=== PATIENT | female | born 1995 | race Caucasian/White ===

== ENCOUNTER 2016-08-07 12:01 | Inpatient (IN) | payer MEDICAID ==
[~2016-08-07] VITALS: Ht 170.2 cm; Wt 77.1 kg
[2016-08-07] VITALS (54 sets, daily range): BP systolic 94–137; BP diastolic 51–88
[~2016-08-07 12:01] MED LIST: FAMO-119 PO; PREN1TAB86 PO
[2016-08-07] MEDS ORDERED: D5 LR IV SOLUTION 1,000 ML IV ONE (12:16)
[2016-08-07] MEDS: D5 LR IV SOLUTION 1,000 ML IV SCH ×2 (12:35→19:01)
[2016-08-07 13:04] LABS: BASOPHILS # (AUTO) 0.1 10^3/uL (0.0-0.1); BASOPHILS % (AUTO) 0 % (0-10); EOSINOPHILS # (AUTO) 0.1 10^3/uL (0.0-0.3); EOSINOPHILS % (AUTO) 1 % (0-10); LYMPHOCYTES # (AUTO) 2.8 X 10^3 (1.0-4.0); LYMPHOCYTES % (AUTO) 22 % (12-44); MEAN CORPUSCULAR HEMOGLOBIN 28 PG (25-34); MEAN CORPUSCULAR HGB CONC 33 G/DL (32-36); MEAN CORPUSCULAR VOLUME 84 FL (80-99); MEAN PLATELET VOLUME 11.2 FL (7.4-10.4); MONOCYTES # (AUTO) 0.9 X 10^3 (0.0-1.0); MONOCYTES % (AUTO) 7 % (0-12); NEUTROPHILS # (AUTO) 9.2 X 10^3 (1.8-7.8); NEUTROPHILS % (AUTO) 70 % (42-75); PLATELET COUNT 192 10^3/uL (130-400); RED BLOOD COUNT 4.35 10^6/uL (4.35-5.85); RED CELL DISTRIBUTION WIDTH 14.2 % (10.0-14.5); WHITE BLOOD COUNT 13.1 10^3/uL (4.3-11.0)
[2016-08-07] MEDS ORDERED: OXYTOCIN/NORMAL SALINE 500 ML IV SCH ×2 (13:10→13:12)
[2016-08-07] MEDS ORDERED: MEASLES,MUMPS,RUBELLA 1 EA INJ SC ONE (13:15)
[2016-08-07] MEDS ORDERED: TETANUS,DIPTH,PERTUSS P/F (BOOSTRIX) 0.5 ML VIAL IM ONE (13:15)
[2016-08-07] MEDS ORDERED: BENZOCAINE/MENTHOL (DERMOPLAST) 56 ML CAN TP PRN (13:15)
[2016-08-07] MEDS ORDERED: oxyCODONE/APAP 10/325MG (PERCOCET 10) TABLET PO PRN (13:15)
--- NOTE | 2016-08-07 13:20 | History & Physical ---
History and Physical patient is a 20-year-old G1 white female with an EDC of August 20, 2016 patient 38 weeks gestation. Patient was seen in clinic today and was found to be dontae consistent with early labor. Her cervix was 2 cm dilated 50 percent effaced -2 station. Dontae every 2-4 minutes. Denies rupture membranes or bleeding. Was found to have any significant vaginal yeast. Her GBS culture was negative. She was sent to labor and delivery for management. Allergies are none Medications are vitamins and Pepcid Past medical history, past surgical history, family history, social histories, and obstetric history are per the antepartum record HEENT exam is normal Neck is supple no lymphadenopathy no thyromegaly Abdomen is gravid soft nontender nondistended Extremities show no clubbing or cyanosis. There is no Homans sign. Exam in clinic showed a cervix 2 cm dilated 50 percent effaced -2 station vertex presentation cervix was soft and anterior. Repeat exam now shows a cervix 3 cm dilated 80 percent effaced -1 station vertex intact soft and anterior. Amniotomy is performed releasing clear fluid. There is a significant green discharge in the vaginal vault consistent with at least fungal infection. Laboratory Tests Test 08/07/16 12:54 Range/Units Basophils # (Auto) 0.1 0.0-0.1 10^3/uL Basophils (%) (Auto) 0 0-10 % Eosinophils # (Auto) 0.1 0.0-0.3 10^3/uL Eosinophils (%) (Auto) 1 0-10 % Hematocrit 36 35-52 % Hemoglobin 12.0 11.5-16.0 G/DL Lymphocytes # (Auto) 2.8 1.0-4.0 X 10^3 Lymphocytes (%) (Auto) 22 12-44 % Mean Corpuscular Hemoglobin 28 25-34 PG Mean Corpuscular Hemoglobin Concent 33 32-36 G/DL Mean Corpuscular Volume 84 80-99 FL Mean Platelet Volume 11.2 H 7.4-10.4 FL Monocytes # (Auto) 0.9 0.0-1.0 X 10^3 Monocytes (%) (Auto) 7 0-12 % Neutrophils # (Auto) 9.2 H 1.8-7.8 X 10^3 Neutrophils (%) (Auto) 70 42-75 % Platelet Count 192 130-400 10^3/uL Red Blood Count 4.35 4.35-5.85 10^6/uL Red Cell Distribution Width 14.2 10.0-14.5 % White Blood Count 13.1 H 4 .3-11.0 10^3/uL Patient white blood cell count is slightly elevated consistent with early labor monitor shows contractions now every 2 minutes. There is a normal heart rate pattern. There are no D cells. There are accelerations. Assessment and plan term at 38 weeks' gestation in early labor spontaneously. Patient also has an overt vaginal infection. We will obtain placental pathology to evaluate the status and condition of the placenta as well. Amniotomy has been performed. Epidural will be allowed if requested. Anticipation is for vaginal delivery although plans in preparation would be in place for if needed 38 weeks gestation and spontaneous labor Allergies and Home Medications Allergies Coded Allergies: No Known Drug Allergies (Unverified , 05/02/16) Home Medications Famotidine 20 Mg Tablet #40 20 MG PO BID (Reported) Vit W-Ca,Fe,FA(<1 mg) 1 Each Tablet 1 EACH PO DAILY (Reported) Clinical Quality Measures DVT/VTE Risk/Contraindication: Risk Factor Score Per Nursin RFS Level Per Nursing on Admit: 1=Low/No VTE PPX MERISSA SOSA MD Aug 07, 2016 1:20 pm
[2016-08-07] MEDS ORDERED: FLUCONAZOLE 200 MG/100 ML 100 ML IV SCH (13:30)
[2016-08-07] MEDS ORDERED: CATHETER FLUSH 10 ML SYR IV SCH (14:00)
[2016-08-07] MEDS ORDERED: SUFENTA 0.6MCG/ML BUPIVA 0.125 100 ML ONE (15:03)
[2016-08-07] MEDS ORDERED: BUPIVACAINE 0.25% 30 ML (SENSORCAINE) VIAL ONE (15:36)
[2016-08-07] MEDS ORDERED: fentaNYL INJECTION 100 MCG/2 ML AMP ONE (15:36)
[2016-08-07] MEDS ORDERED: LIDOCAINE PF 2% 10 ML (XYLOCAINE) AMP ONE (15:36)
[2016-08-07] MEDS ORDERED: LACTATED RINGERS 1,000 ML IV ONE (16:09)
[2016-08-07] MEDS ORDERED: NALOXONE 0.4 MG/ML 1 ML (NARCAN) VIAL IV PRN (16:15)
[2016-08-07] MEDS ORDERED: diphenhydrAMINE 50 MG/ML INJ (BENADRYL) IV PRN (16:15)
[2016-08-07] MEDS ORDERED: EPIDURAL (SUFENTA 0.6MCG/ML BUPIVA 0.125%) 100 ML BAG EPI PRN (16:15)
[2016-08-07] MEDS ORDERED: ONDANSETRON 4 MG/2 ML (SDV) Z0FRAN IV PRN (16:15)
[2016-08-07] MEDS ORDERED: fluCOnazole (DIFLUCAN) 100 MG TAB PO SCH (17:00)
[2016-08-07] MEDS ORDERED: LIDOCAINE/EPI 1%-1:200,000 (XYLOCAINE) 30 ML VIAL ONE (21:33)
[2016-08-07] MEDS ORDERED: MINERAL OIL CONCENTRATE 99.9% 15 ML UDC ONE (21:33)
[2016-08-08] VITALS (10 sets, daily range): BP systolic 94–120; BP diastolic 53–78
[2016-08-08] MEDS ORDERED: ONDANSETRON 4 MG/2 ML (SDV) Z0FRAN IV PRN (00:15)
[2016-08-08] MEDS: KETOROLAC 30 MG/ML VIAL IV SCH ×2 (01:40→09:40)
--- NOTE | 2016-08-08 07:58 | Progress Note-Standard ---
Standard Progress Note Progress Notes/Assess & Plan Progress/Assessment & Plan this patient is without complaint. She is ambulating, voiding, tolerating by mouth well, and has good pain control. Vital Signs Date Time Temp Pulse Resp B/P Pulse Ox O2 Delivery O2 Flow Rate FiO2 08/08/16 04:10 98.1 84 18 107/70 97 Room Air 08/08/16 01:02 90 18 110/64 Room Air 08/08/16 00:47 99.6 85 18 109/55 Room Air 08/08/16 00:32 85 18 119/63 Room Air 08/08/16 00:17 100.4 97 18 111/55 Room Air 08/08/16 00:02 100.3 96 18 105/57 Room Air 08/07/16 23:47 99.7 100 18 105/55 Room Air 08/07/16 23:32 105 18 94/51 Room Air 08/07/16 23:18 102 18 118/57 Room Air 08/07/16 23:12 97.7 110 18 130/71 100 Room Air 08/07/16 23:00 82 18 123/70 100 Room Air 08/07/16 22:45 97 18 133/78 100 Room Air 08/07/16 22:30 75 18 94/54 100 Room Air 08/07/16 22:15 97.4 78 18 120/67 100 Room Air 08/07/16 22:00 97.6 75 18 109/66 100 Room Air 08/07/16 21:45 85 18 112/66 100 Room Air 08/07/16 21:30 74 18 115/65 100 Room Air 08/07/16 21:15 96.6 73 18 105/60 100 Room Air 08/07/16 21:00 73 18 111/65 100 Room Air 08/07/16 20:45 78 18 112/72 100 Room Air 08/07/16 20:30 75 18 109/61 99 Room Air 08/07/16 20:15 75 18 119/75 99 Room Air 08/07/16 20:00 72 18 112/65 100 Room Air 08/07/16 19:45 97.9 75 18 109/65 100 Room Air 08/07/16 19:30 72 18 115/66 100 Room Air 08/07/16 19:15 76 18 100 Room Air 08/07/16 19:00 77 18 106/71 100 Room Air 08/07/16 18:50 77 18 114/75 99 Room Air 08/07/16 18:35 78 18 114/65 99 Room Air 08/07/16 18:20 73 18 112/63 99 Room Air 08/07/16 18:05 97.6 75 18 118/58 100 Room Air 08/07/16 17:50 72 18 114/66 100 Room Air 08/07/16 17:35 76 18 114/70 100 Room Air 08/07/16 17:25 71 18 114/60 100 Room Air 08/07/16 17:05 74 18 101/59 98 Room Air 08/07/16 16:55 70 18 106/55 97 Room Air 08/07/16 16:35 84 18 109/59 98 Room Air 08/07/16 16:33 83 18 107/53 97 Room Air 08/07/16 16:30 97.7 89 18 115/63 97 Room Air 08/07/16 16:26 76 18 105/60 98 Room Air 08/07/16 16:23 78 18 105/61 97 Room Air 08/07/16 16:20 82 18 103/56 97 Room Air 08/07/16 16:17 78 18 103/56 98 Room Air 08/07/16 16:15 80 18 104/64 08/07/16 16:12 87 107/64 98 08/07/16 16:09 85 104/61 100 08/07/16 16:06 77 103/63 100 08/07/16 16:03 79 18 103/60 100 08/07/16 15:50 90 18 110/59 100 08/07/16 15:35 87 18 110/88 08/07/16 15:20 88 18 116/73 08/07/16 15:05 93 18 124/77 08/07/16 14:50 85 18 137/56 08/07/16 14:35 97.1 93 106/67 08/07/16 14:20 87 18 106/68 Room Air 08/07/16 13:50 81 18 114/73 Room Air 08/07/16 13:15 98 18 110/67 Room Air 08/07/16 12:45 97.6 90 18 108/67 Room Air 08/07/16 12:30 91 18 114/61 Room Air 2/14/17 12:15 93 18 115/73 Room Air 08/07/16 11:55 88 18 120/73 100 Room Air I & O 08/08/16 07:00 Intake Total 2480 ml Output Total 1050 ml Balance 1430 ml vital signs are stable. Patient is afebrile. Fundus is firm below the umbilicus and nontender. Extremities show clubbing or cyanosis. There is no Homans sign. There is some pretibial pitting edema that is normal. Assessment and plan day number 1 status post return spontaneous vaginal delivery doing well. Plan is for routine convalescence care today and consider for discharge home tomorrow MERISSA SOSA MD Aug 08, 2016 7:58 am
[2016-08-08] MEDS ORDERED: FLUC100T6 PO (07:59)
[2016-08-08] MEDS ORDERED: OXYC-465 PO (07:59)
[2016-08-08] MEDS ORDERED: DOCU100C37 PO (07:59)
[2016-08-08] MEDS ORDERED: IBUP-1780 PO (07:59)
--- NOTE | 2016-08-08 08:01 | Discharge Instructions ---
Discharge Instructions Discharge Medications New, Converted or Re-Newed RX: RX on Chart Patient Instructions Patient Instructions: as directed Return to [facility] For: as directed Activity & Diet Discharge Diet: No Restrictions Activity as Tolerated: No Orders-Post D/C & Referrals Follow Up Appt: Call to make follow up appt. for patient in 4 weeks. Activity Per routine post vaginal delivery instructions. Diet as tolerated Patient may shower or tub bathe as desired. MERISSA SOSA MD Aug 08, 2016 8:00 am
[2016-08-08] MEDS: DOCUSATE SODIUM 100 MG (COLACE) CAP PO SCH ×2 (09:39→20:48)
--- NOTE | 2016-08-08 10:51 | Anesthesia-Regional Post-Op ---
Regional Patient Condition Mental Status: Alert, Oriented x3 Circulation: Same as Pre-Op Headache: Absent Sensation: Full Recovery Motor Block: Absent Post Op Complications Complications None Follow Up Care/Instructions Patient Instructions None needed. Anesthesia/Patient Condition Patient is doing well, no complaints, stable vital signs, no apparent adverse anesthesia problems. No complications reported per nursing. ELIZABETH MONTELONGO CRNA Aug 08, 2016 10:51
[2016-08-08] MEDS: IBUPROFEN 800 MG (MOTRIN) TAB PO SCH (17:03)
[2016-08-09 00:50] VITALS: BP 89/55
[2016-08-09] MEDS: IBUPROFEN 800 MG (MOTRIN) TAB PO SCH ×2 (00:54→06:29)
[2016-08-09 04:10] VITALS: BP 98/61
--- NOTE | 2016-08-09 07:37 | Progress Note-Standard ---
Standard Progress Note Progress Notes/Assess & Plan Progress/Assessment & Plan this patient is without complaint. She is ambulating, voiding, tolerating by mouth well, and has good pain control. Vital Signs Date Time Temp Pulse Resp B/P Pulse Ox O2 Delivery O2 Flow Rate FiO2 08/08/16 04:10 98.1 84 18 107/70 97 Room Air 08/08/16 01:02 90 18 110/64 Room Air 08/08/16 00:47 99.6 85 18 109/55 Room Air 08/08/16 00:32 85 18 119/63 Room Air 08/08/16 00:17 100.4 97 18 111/55 Room Air 08/08/16 00:02 100.3 96 18 105/57 Room Air 08/07/16 23:47 99.7 100 18 105/55 Room Air 08/07/16 23:32 105 18 94/51 Room Air 08/07/16 23:18 102 18 118/57 Room Air 08/07/16 23:12 97.7 110 18 130/71 100 Room Air 08/07/16 23:00 82 18 123/70 100 Room Air 08/07/16 22:45 97 18 133/78 100 Room Air 08/07/16 22:30 75 18 94/54 100 Room Air 08/07/16 22:15 97.4 78 18 120/67 100 Room Air 08/07/16 22:00 97.6 75 18 109/66 100 Room Air 08/07/16 21:45 85 18 112/66 100 Room Air 08/07/16 21:30 74 18 115/65 100 Room Air 08/07/16 21:15 96.6 73 18 105/60 100 Room Air 08/07/16 21:00 73 18 111/65 100 Room Air 08/07/16 20:45 78 18 112/72 100 Room Air 08/07/16 20:30 75 18 109/61 99 Room Air 08/07/16 20:15 75 18 119/75 99 Room Air 08/07/16 20:00 72 18 112/65 100 Room Air 08/07/16 19:45 97.9 75 18 109/65 100 Room Air 08/07/16 19:30 72 18 115/66 100 Room Air 08/07/16 19:15 76 18 100 Room Air 08/07/16 19:00 77 18 106/71 100 Room Air 08/07/16 18:50 77 18 114/75 99 Room Air 08/07/16 18:35 78 18 114/65 99 Room Air 08/07/16 18:20 73 18 112/63 99 Room Air 08/07/16 18:05 97.6 75 18 118/58 100 Room Air 08/07/16 17:50 72 18 114/66 100 Room Air 08/07/16 17:35 76 18 114/70 100 Room Air 08/07/16 17:25 71 18 114/60 100 Room Air 08/07/16 17:05 74 18 101/59 98 Room Air 08/07/16 16:55 70 18 106/55 97 Room Air 08/07/16 16:35 84 18 109/59 98 Room Air 08/07/16 16:33 83 18 107/53 97 Room Air 08/07/16 16:30 97.7 89 18 115/63 97 Room Air 08/07/16 16:26 76 18 105/60 98 Room Air 08/07/16 16:23 78 18 105/61 97 Room Air 08/07/16 16:20 82 18 103/56 97 Room Air 08/07/16 16:17 78 18 103/56 98 Room Air 08/07/16 16:15 80 18 104/64 08/07/16 16:12 87 107/64 98 08/07/16 16:09 85 104/61 100 08/07/16 16:06 77 103/63 100 08/07/16 16:03 79 18 103/60 100 08/07/16 15:50 90 18 110/59 100 08/07/16 15:35 87 18 110/88 08/07/16 15:20 88 18 116/73 08/07/16 15:05 93 18 124/77 08/07/16 14:50 85 18 137/56 08/07/16 14:35 97.1 93 106/67 08/07/16 14:20 87 18 106/68 Room Air 08/07/16 13:50 81 18 114/73 Room Air 08/07/16 13:15 98 18 110/67 Room Air 08/07/16 12:45 97.6 90 18 108/67 Room Air 08/07/16 12:30 91 18 114/61 Room Air 2/14/17 12:15 93 18 115/73 Room Air 08/07/16 11:55 88 18 120/73 100 Room Air I & O 08/08/16 07:00 Intake Total 2480 ml Output Total 1050 ml Balance 1430 ml vital signs are stable. Patient is afebrile. Fundus is firm below the umbilicus and nontender. Extremities show clubbing or cyanosis. There is no Homans sign. There is some pretibial pitting edema that is normal. Assessment and plan day number 1 status post return spontaneous vaginal delivery doing well. Plan is for routine convalescence care today and consider for discharge home tomorrow August 09, 2016 Patient is without complaint. She is ambulating, voiding, tolerating by mouth well, has good pain control, is requesting discharge home. Vital Signs Date Time Temp Pulse Resp B/P Pulse Ox O2 Delivery O2 Flow Rate FiO2 08/09/16 04:10 97.4 78 18 98/61 98 Room Air 08/09/16 00:50 97.7 72 18 89/55 98 Room Air 08/08/16 20:40 98.0 78 18 101/60 100 Room Air 08/08/16 16:45 97.8 75 18 94/53 99 Room Air 08/08/16 12:30 97.8 83 18 114/78 98 Room Air 08/08/16 09:15 98.2 82 18 120/74 100 Room Air vital signs are stable. Patient is afebrile. Fundus is firm below the umbilicus and nontender. Extreme show no clubbing or cyanosis. There is no Homans sign. There is some pretibial pitting edema that is normal. Assessment and plan day number 2 status post term spontaneous vaginal delivery at 38 weeks gestation doing well. Plan is for discharge home with follow-up in clinic Final Diagnosis 38 week MERISSA WEEKS MD Aug 09, 2016 7:37 am
[2016-08-09 08:05] VITALS: BP 97/65
--- NOTE | 2016-08-09 12:18 | PROCEDURE REPORT ---
PROCEDURE PHYSICIAN: MERISSA SOSA DELIVERY NOTE: DATE OF DELIVERY: 08/07/2016 DATE OF DICTATION: 07/28/2016 The patient delivered by term spontaneous vaginal delivery of a viable female infant with Apgars of 9 and 9 at one and five minutes respectfully. Weight is 3260 grams. time was 2312. The was bulb suctioned on delivery of the head and again on completion of delivery. The delivery was accomplished under epidural anesthesia with local in the perineum. The delivery was accomplished over an intact perineum with some very minor superficial abrasions to the labia and to the periurethral area bilaterally; those were hemostatic and no repair was required. After delivery of the head the infant was bulb suctioned and then bulb suctioned again on completion of delivery. The cord was doubly clamped, the father cut the cord. The baby was passed to mom's abdomen. Cord bloods were obtained. Due to an episode of decreased heart rate as delivery approached. an umbilical cord arterial blood gas was obtained. The pH was 7.17. That was obtained because of some decelerations during the pushing phase of labor. The placenta delivered spontaneously [place], it was normal with a 3 vessel cord. The placenta was somewhat calcified and will be sent to pathology for permanent section. The cervix, vagina, rectum and perineum were examined and found intact except for the periurethral superficial abrasions. There were some minor damage to hymenal ring but this was hemostatic and did not require repair. The sponge and needle counts were correct on completion of delivery. Estimated blood loss was around 150 mL. The patient tolerated delivery well and remained in the LDR for recovery. The baby remained with the mom. Job ID: [id number] Dictated Date: 08/07/2016 23:24:33 Nurse First Aid Date: 08/09/2016 12:11:59 / baljinder PARKER
== END 2016-08-09 10:45 | disposition home or self-care (01) | DRG 775 ==
LOC: LDRP 12:01
PROVIDERS: ADMIT Obstetrics & Gynecology; ATTEND Obstetrics & Gynecology
PROC: 10E0XZZ Delivery of Products of Conception, External Approach (ICD-10-PCS; principal; 2016-08-07)
DX: O23.593 Infection of other part of genital tract in pregnancy, third trimester (principal); O76 Abnormality in fetal heart rate and rhythm complicating labor and delivery; Z3A.38 38 weeks gestation of pregnancy; Z37.0 Single live birth
CPT/HCPCS: 36415; 85025; 86850; 86900; 86901